=== PATIENT | male | born 1995 | race African-American/Black ===

== ENCOUNTER 2017-05-04 04:16 | Emergency (ER) | payer SELFPAY ==
[2017-05-04] MEDS ORDERED: SODIUM BICARBONATE 8.4% INJ 50 MEQ/50 ML SYR IV ONE (04:17)
[2017-05-04] MEDS ORDERED: EPINEPHrine HCL (1:10,000) 1 MG/10 ML SYRINGE IV ONE (04:17)
[2017-05-04 04:38] LABS: BLOOD GAS VENOUS BASE EXCESS -22.3 mmol/L (-2-2); BLOOD GAS VENOUS HCO3 12 mmol/L (22-26); BLOOD GAS VENOUS O2 CONTENT 2.7 Vol % (9.0-17.0); BLOOD GAS VENOUS O2 HGB SAT 14 % (70-76); BLOOD GAS VENOUS PO2 27 mmHg (35-40); TEMP CORR TO 98.6
[2017-05-04 04:39] LABS: BLOOD GAS VENOUS PCO2 119 mmHg (44-48); BLOOD GAS VENOUS pH 6.64 (7.360-7.400); CRITICAL VALUE YES; DRAW SITE Y; FIO2 100 %; OXYGEN DEVICE AMBU TO ETT; STAT YES
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
== END 2017-05-04 09:57 | disposition expired ==
LOC: NEPC 04:16 → NEPI 09:57
DX: I46.9 Cardiac arrest, cause unspecified (principal); W67.XXXA Accidental drowning and submersion while in swimming-pool, initial encounter; Y92.008 Other place in unspecified non-institutional (private) residence as the place of occurrence of the external cause
CPT/HCPCS: 82805; 92950; 99285; J0171